=== PATIENT | male | born 1955 | race Caucasian/White ===

== ENCOUNTER 2016-10-17 08:13 | Emergency (ER) | payer OTHER ==
--- NOTE | 2016-10-17 08:52 | EDPHY ---
H & P Stated Complaint: LOWER ABD PAIN, URINARY HESISTANCY/STRAIN/FREQ Time Seen by Provider: 10/17/16 08:46 HPI/ROS: CHIEF COMPLAINT: Urinary retention HISTORY OF PRESENT ILLNESS: Patient is a 61-year-old man who comes to the emergency department complaining of urinary retention. It is gradually worsened over the last 2 weeks. He has a referral to the urologist at the [place] 9 days from now. However he is having pain in his lower abdomen and is only is able to urinate small amounts. No fevers. No chest pain. No flank pain. REVIEW OF SYSTEMS: Constitutional: denies: chills, fever, recent illness, recent injury EENTM: denies: blurred vision, double vision, nose congestion Respiratory: denies: cough, shortness of breath Cardiac: denies: chest pain, irregular heart rate, lightheadedness, palpitations Gastrointestinal/Abdominal: denies: abdominal pain, diarrhea, nausea, vomiting, blood streaked stools Genitourinary: See HPI Musculoskeletal: denies: joint pain, muscle pain Skin: denies: lesions, rash, jaundice, bruising Neurological: denies: headache, numbness, paresthesia, tingling, dizziness, weakness Hematologic/Lymphatic: denies: blood clots, easy bleeding, easy bruising Immunologic/allergic: denies: HIV/AIDS, transplant EXAM: GENERAL: Well-appearing, well-nourished and in no acute distress. HEAD: Atraumatic, normocephalic. EYES: Pupils equal round and reactive to light, extraocular movements intact, sclera anicteric, conjunctiva are normal. ENT: TMs normal, nares patent, oropharynx clear without exudates. Moist mucous membranes. NECK: Normal range of motion, supple without lymphadenopathy or JVD. LUNGS: Breath sounds clear to auscultation bilaterally and equal. No wheezes rales or rhonchi. HEART: Regular rate and rhythm without murmurs, rubs or gallops. ABDOMEN: distended bladder, mild tenderness, Soft, nontender, normoactive bowel sounds. No guarding, no rebound. BACK: No CVA tenderness, no spinal tenderness, step-offs or deformities EXTREMITIES: Normal range of motion, no pitting or edema. No clubbing or cyanosis. NEUROLOGICAL: Cranial nerves II through XII grossly intact. Normal speech, normal gait. 5/5 strength, normal movement in all extremities, normal sensation PSYCH: Normal mood, normal affect. SKIN: Warm, dry, normal turgor, no visible rashes or lesions. Source: Patient Exam Limitations: No limitations - Personal History Current Tetanus/Diphtheria Vaccine: Yes Current Tetanus Diphtheria and Acellular Pertussis (TDAP): Yes Tetanus Vaccine Date: 2009 - Medical/Surgical History Hx Asthma: No Hx Chronic Respiratory Disease: No Hx Diabetes: No Hx Cardiac Disease: No Hx Renal Disease: No Hx Cirrhosis: No Hx Alcoholism: No Hx HIV/AIDS: No Hx Splenectomy or Spleen Trauma: No Other PMH: PSH- ORTHO - Family History Significant Family History: No pertinent family hx - Social History Smoking Status: Never smoked Alcohol Use: Sober Drug Use: None Constitutional: Initial Vital Signs Temperature (C) 36.4 C 10/17/16 08:17 Heart Rate 75 10/17/16 08:17 Respiratory Rate 14 10/17/16 08:17 Blood Pressure 154/81 H 10/17/16 08:17 O2 Sat (%) 98 10/17/16 08:17 O2 Delivery Mode Room Air Allergies/Adverse Reactions: Penicillins Allergy (Verified 03/08/13 02:36) Sulfa (Sulfonamide Antibiotics) Allergy (Verified 03/08/13 02:36) Home Medications: Medication Instructions Recorded Ascorbic Acid [Vitamin C 500 mg 500 mg PO DAILY 03/08/13 (OTC)] Cholecalciferol Vit D3 [Vitamin D3 400 units PO DAILY 03/08/13 400 units (OTC)] Folic Acid 0.2 mg PO DAILY 03/08/13 Herbals/Supplements -Info Only 1 each PO AD 03/08/13 Lisinopril [Zestril 10 mg (RX)] 10 mg PO DAILY 03/08/13 [place]-3 Fatty Acids [Fish Oil 1000 1,000 mg PO DAILY 03/08/13 mg (OTC)] Pharmacy Complete 03/08/13 03/08/13 Vitamin E [Vitamin E 400 units 400 unit PO DAILY 03/08/13 (OTC)] Medical Decision Making ED Course/Re-evaluation: Patient's Betancourt is in place. He has been instructed on leg bag. Urinalysis is unremarkable. We will refer him to Urology. Differential Diagnosis: Partial list of the Differential diagnosis considered include but were not limited to; urinary tract infection, prostatic hypertrophy, urinary obstruction and although unlikely based on the history and physical exam, I also considered rupture, appendicitis, diverticulitis. I discussed these differential diagnoses and the plan with the patient as well as the usual and expected course. The patient understands that the diagnosis is provisional and that in medicine we are not always correct and that further workup is often warranted. Usual and customary warnings were given. All of the patient's questions were answered. The patient was instructed to return to the emergency department should the symptoms at all worsen or return, otherwise to followup with the physician as we discussed. - Data Points Laboratory Results: 10/17/16 Unknown Urine Color PALE YELLOW Urine Appearance CLEAR Urine pH 5.0 (5.0-7.5) Ur Specific [place] 1.010 (1.002-1.030) Urine Protein NEGATIVE (NEGATIVE) Urine Ketones NEGATIVE (NEGATIVE) Urine Blood NEGATIVE (NEGATIVE) Urine Nitrate NEGATIVE (NEGATIVE) Urine Bilirubin NEGATIVE (NEGATIVE) Urine Urobilinogen NEGATIVE EU EU (0.2-1.0) Ur Leukocyte Esterase NEGATIVE (NEGATIVE) Ur Culture Indicated? NOT INDICATED (NI) Urine Glucose NEGATIVE (NEGATIVE) Departure - Departure Disposition: Home, Routine, Self-Care Clinical Impression: Urinary obstruction Condition: Fair Instructions: Betancourt Catheter Placement and Care (ED) Referrals: COLE MCFADDEN [Primary Care Provider] - As per Instructions Christopher Saez MD [Medical Doctor] - As per Instructions
[2016-10-17 09:17] LABS: COLOR PALE YELLOW; LEUKOCYTE ESTERASE,URINE NEGATIVE (NEGATIVE); NITRITE,URINE NEGATIVE (NEGATIVE)
[2016-10-17 10:41] VITALS: BP 139/76; PULSE 82; RESP 17; TEMP 98.1; O2SAT 94
== END 2016-10-17 10:42 | disposition home or self-care (01) ==
PROC: 0T9B70Z Drainage of Bladder with Drainage Device, Via Natural or Artificial Opening (ICD-10-PCS; principal; 2016-10-17)
DX: N13.9 Obstructive and reflux uropathy, unspecified (principal)

== ENCOUNTER 2016-10-18 12:28 | Emergency (ER) | payer OTHER ==
[2016-10-18 12:34] VITALS: BP 146/82; PULSE 76; RESP 16; TEMP 97.7; O2SAT 98
[2016-10-18] MEDS ORDERED: LIDOCAINE 2% JELLY 20 ML (UROJECT) ONE (12:53)
[2016-10-18] MEDS ORDERED: PHENAZOPYRIDINE HCL 200 MG TAB PO ONE (12:59)
[2016-10-18 13:09] LABS: COLOR YELLOW; LEUKOCYTE ESTERASE,URINE NEGATIVE (NEGATIVE); NITRITE,URINE NEGATIVE (NEGATIVE)
[2016-10-18] MEDS ORDERED: TAMSULOSIN HCL 0.4 MG CAP PO ONE ×2 (13:09→13:22)
--- NOTE | 2016-10-18 13:19 | EDPHY ---
H & P Stated Complaint: urinary catheter related pain, hematuria Time Seen by Provider: 10/18/16 12:40 HPI/ROS: CHIEF COMPLAINT: Penile pain following Betancourt catheter placement HISTORY OF PRESENT ILLNESS: The patient presents to the ED with penile pain following placement of a Betancourt catheter in the emergency department yesterday for urinary retention. The patient was diagnosed with a urinary tract infection and completed 10 days of Levaquin. His last dose of the medication was yesterday. He was seen in the ED yesterday and had approximately 2 L strain from his bladder. He had done well until this morning. His Betancourt catheter continues to drain however has developed some mild hematuria. Patient complains of fairly significant discomfort throughout his urethra. He denies any flank pain, fever or vomiting. REVIEW OF SYSTEMS: A comprehensive 10 point review of systems is otherwise negative aside from elements mentioned in the history of present illness. Source: Patient Exam Limitations: No limitations - Personal History Current Tetanus/Diphtheria Vaccine: Unsure Current Tetanus Diphtheria and Acellular Pertussis (TDAP): Unsure Tetanus Vaccine Date: 2009 - Medical/Surgical History Hx Asthma: No Hx Chronic Respiratory Disease: No Hx Diabetes: No Hx Cardiac Disease: No Hx Renal Disease: No Hx Cirrhosis: No Hx Alcoholism: No Hx HIV/AIDS: No Hx Splenectomy or Spleen Trauma: No Other PMH: PSH- ORTHO. BPH - Social History Smoking Status: Never smoked - Physical Exam Exam: General Appearance: Alert, no distress Eyes: Pupils equal and round no pallor or injection ENT, Mouth: Mucous membranes moist Respiratory: There are no retractions, lungs are clear to auscultation Cardiovascular: Regular rate and rhythm Gastrointestinal: Abdomen is soft and nontender, no masses, bowel sounds normal Genitourinary: Betancourt catheter in place. Neurological: A&O, normal motor function, normal sensory exam, normal cranial nerves Skin: Warm and dry, no rashes Musculoskeletal: Neck is supple nontender Extremities: symmetrical, full range of motion Constitutional: Initial Vital Signs Temperature (C) 36.5 C 10/18/16 12:32 Heart Rate 76 10/18/16 12:32 Respiratory Rate 16 10/18/16 12:32 Blood Pressure 146/82 H 10/18/16 12:32 O2 Sat (%) 98 10/18/16 12:32 O2 Delivery Mode Room Air Allergies/Adverse Reactions: Penicillins Allergy (Verified 03/08/13 02:36) Sulfa (Sulfonamide Antibiotics) Allergy (Verified 03/08/13 02:36) Home Medications: Medication Instructions Recorded Ascorbic Acid [Vitamin C 500 mg 500 mg PO DAILY 03/08/13 (OTC)] Cholecalciferol Vit D3 [Vitamin D3 400 units PO DAILY 03/08/13 400 units (OTC)] Folic Acid 0.2 mg PO DAILY 03/08/13 Herbals/Supplements -Info Only 1 each PO AD 03/08/13 Lisinopril [Zestril 10 mg (RX)] 10 mg PO DAILY 03/08/13 [place]-3 Fatty Acids [Fish Oil 1000 1,000 mg PO DAILY 03/08/13 mg (OTC)] Pharmacy Complete 03/08/13 03/08/13 Vitamin E [Vitamin E 400 units 400 unit PO DAILY 03/08/13 (OTC)] Phenazopyridine HCl [Pyridium 200 mg PO TID PRN #10 tab 10/18/16 200mg (RX)] Tamsulosin HCl [Flomax] 0.4 mg PO DAILY #30 cap 10/18/16 levOFLOXACIN [Levaquin] 500 mg PO DAILY #10 tab 10/18/16 Medical Decision Making ED Course/Re-evaluation: I did inject viscous lidocaine into the urethra. The patient's Betancourt catheter securing patch has been repositioned as a did appear to be resulting in some lateral traction in its current location. Additionally, the patient will be started on Pyridium and Flomax. The patient does have evidence of recurrent pyuria and bacteriuria. A urine culture is pending. He will be restarted on Levaquin. The patient does have a follow-up appointment with Urology for further evaluation of his BPH. Differential Diagnosis: Differential diagnosis considered includes urinary retention, Betancourt catheter malfunction, urinary tract infection, cystitis, urethritis - Data Points Laboratory Results: 10/18/16 12:43 Urine Color YELLOW Urine Appearance MODERATELY TURBID Urine pH 5.0 (5.0-7.5) Ur Specific [place] 1.024 (1.002-1.030) Urine Protein 2+ H (NEGATIVE) Urine Ketones NEGATIVE (NEGATIVE) Urine Blood 3+ H (NEGATIVE) Urine Nitrate NEGATIVE (NEGATIVE) Urine Bilirubin NEGATIVE (NEGATIVE) Urine Urobilinogen NEGATIVE EU EU (0.2-1.0) Ur Leukocyte Esterase NEGATIVE (NEGATIVE) Urine RBC 50-182 /hpf H /hpf (0-3) Urine WBC 5-10 /hpf H /hpf (0-3) Ur Epithelial Cells TRACE /lpf /lpf (NONE-1+) Urine Bacteria 1+ /hpf H /hpf (NONE SEEN) Urine Mucus 1+ /lpf /lpf (NONE-1+) Ur Culture Indicated? INDICATED H (NI) Urine Glucose NEGATIVE (NEGATIVE) Medications Given: Discontinued Medications Phenazopyridine HCl (Pyridium) 200 mg PO EDNOW ONE Stop: 10/18/16 13:00 Last Admin: 10/18/16 13:21 Dose: 200 mg Tamsulosin HCl (Flomax) 0.4 mg PO EDNOW ONE Stop: 10/18/16 13:23 Last Admin: 10/18/16 13:28 Dose: 0.4 mg Departure - Departure Disposition: Home, Routine, Self-Care Clinical Impression: Urinary retention, Betancourt catheter in place, Penile pain Condition: Good Instructions: Betancourt Catheter Placement and Care (ED) Additional Instructions: 1. Please take Flomax and Pyridium as directed. 2. Please return to the ED for should your Betancourt catheter stopped draining, develop fever, flank pain or vomiting. 3. Please follow up as scheduled with your primary care provider and urologist. 4. Please resume Levaquin, we do have a urine culture pending at this point time. Please contact the ED in 2 days to check the results of that. Referrals: COLE MCFADDEN [Primary Care Provider] - As per Instructions Prescriptions: levOFLOXACIN [Levaquin] 500 mg PO DAILY #10 tab Phenazopyridine HCl [Pyridium 200mg (RX)] 200 mg PO TID PRN #10 tab PRN Reason: for painful urination Tamsulosin HCl [Flomax] 0.4 mg PO DAILY #30 cap
[2016-10-18 13:21] LABS: BACTERIA 1+ /hpf (NONE SEEN); MUCUS 1+ /lpf (NONE-1+); RBC,URINE 50-182 /hpf (0-3)
== END 2016-10-18 14:13 | disposition home or self-care (01) ==
DX: N48.89 Other specified disorders of penis (principal); R33.9 Retention of urine, unspecified; Z46.6 Encounter for fitting and adjustment of urinary device

== ENCOUNTER 2017-05-23 20:29 | Emergency (ER) | payer OTHER ==
--- NOTE | 2017-05-23 20:53 | EDPHY ---
H & P Time Seen by Provider: 05/23/17 20:41 HPI/ROS: CHIEF COMPLAINT: Right flank pain, hematuria, urinary retention HISTORY OF PRESENT ILLNESS: The patient is a 62-year-old male with a history of BPH and urinary retention who presents to the emergency department with multiple complaints. The patient states his symptoms started at the end of last week when he had a self catheterization on Wednesday. He states that he has not self catheterization this 6 months preceding. He obtain and 50 mL after catheterization. He slowly has developed pressure that is similar to his urinary retention. He last catheterization this morning at 5:00 a.m.. This morning during his catheterization he noticed that he had eric hematuria. He also slowly developed right flank pain. He has had no nausea or vomiting. No fevers or chills. REVIEW OF SYSTEMS: My complete review of systems is negative except as mentioned in the HPI. Past Medical/Surgical History: Includes the benign prosthetic hypertrophy, hypertension, small-bowel obstruction Past surgical history: Includes lysis of adhesion, bilateral hernia repair, vasectomy Social history: The patient is . He does not smoke. Smoking Status: Never smoked Physical Exam: 37.2, 110/67, 84, 18, 97% on room air GENERAL: Well-appearing, in no acute distress, alert. HEENT: Eyes normal to inspection, normal pharynx, no signs of dehydration. NECK: No thyromegaly, no lymphadenopathy, supple. RESPIRATORY: Clear to auscultation bilaterally, no rales, rhonchi or wheezing. CVS: Regular rate and rhythm, no rubs, murmurs, or gallops. ABDOMEN: Soft, mild suprapubic tenderness to palpation with no rebound or guarding, nondistended, no organomegaly. BACK: Normal to inspection, no CVA tenderness. SKIN: Normal color, no rash, warm, dry. No pallor. EXTREMITIES: No pedal edema, no joint swelling. NEURO/PSYCH: Alert and oriented, normal mood and affect Constitutional: Initial Vital Signs Temperature (C) 37.2 C 05/23/17 20:33 Heart Rate 84 05/23/17 20:33 Respiratory Rate 18 05/23/17 20:33 Blood Pressure 110/67 05/23/17 20:33 O2 Sat (%) 97 05/23/17 20:33 O2 Delivery Mode Room Air Allergies/Adverse Reactions: Penicillins Allergy (Verified 03/08/13 02:36) Sulfa (Sulfonamide Antibiotics) Allergy (Verified 03/08/13 02:36) Home Medications: Medication Instructions Recorded Ascorbic Acid [Vitamin C 500 mg 500 mg PO DAILY 03/08/13 (OTC)] Cholecalciferol Vit D3 [Vitamin D3 400 units PO DAILY 03/08/13 400 units (OTC)] Herbals/Supplements -Info Only 1 each PO AD 03/08/13 Lisinopril [Zestril 10 mg (RX)] 10 mg PO DAILY 03/08/13 [place]-3 Fatty Acids [Fish Oil 1000 1,000 mg PO DAILY 03/08/13 mg (OTC)] Vitamin E [Vitamin E 400 units 400 unit PO DAILY 03/08/13 (OTC)] Tamsulosin HCl [Flomax] 0.4 mg PO DAILY #30 cap 10/18/16 Cephalexin [Keflex (*)] 500 mg PO QID 7 Days cap 05/23/17 Finasteride 05/23/17 Medical Decision Making ED Course/Re-evaluation: In the emergency department I discussed possible etiologies with the patient. An IV was placed. Laboratory studies were obtained. A CT of the abdomen and pelvis without contrast was ordered. I reviewed the patient's laboratory studies[place] [address]. His creatinine was normal. He has mildly elevated BUN. Abdominal pelvis CT: Please refer the dictated report by Dr. Jonny Brown. Patient has no ureteral or kidney stones. He has a crossed fused renal ectopia. There is diffuse bladder wall thickening. This was present previously. There is a cyst on the right posterior aspect of his bladder. This was also present previously but it is bigger today. Post CT imaging the Betancourt catheter was placed and irrigated. I discussed the results with the patient. On recheck the patient was doing well. He had no abdominal pain. He had no tenderness palpation. The patient was given Rocephin 1 g IV. I answered all the patient's questions. The patient feels comfortable continuing to self cath. The Betancourt catheter will be removed. Patient will take his entire course of antibiotics. He will follow up with his urologist Dr. Wei Sarmiento. Patient was instructed to call his urologist tomorrow. He will return with worsening symptoms. He is given warnings prior to leaving. Differential Diagnosis: My differential includes but is not limited to urinary retention, urinary tract infection, hematuria, cystitis, mass, malignancy, kidney stone, cyst - Data Points Laboratory Results: Laboratory Results 05/23/17 20:50 05/23/17 20:50 05/23/17 05/23/17 05/23/17 20:50 20:50 20:50 WBC 14.07 10^3/uL H 10^3/uL (3.80-9.50) RBC 4.90 10^6/uL 10^6/uL (4.40-6.38) Hgb 14.5 g/dL g/dL (13.7-17.5) Hct 41.7 % % (40.0-51.0) MCV 85.1 fL fL (81.5-99.8) MCH 29.6 pg pg (27.9-34.1) MCHC 34.8 g/dL g/dL (32.4-36.7) RDW 13.9 % % (11.5-15.2) Plt Count 169 10^3/uL 10^3/uL (150-400) MPV 11.3 fL fL (8.7-11.7) Neut % (Auto) 78.4 % H % (39.3-74.2) Lymph % (Auto) 11.2 % L % (15.0-45.0) Lamb % (Auto) 9.0 % % (4.5-13.0) Eos % (Auto) 0.4 % L % (0.6-7.6) Baso % (Auto) 0.4 % % (0.3-1.7) Nucleat RBC Rel Count 0.0 % % (0.0-0.2) Absolute Neuts (auto) 11.04 10^3/uL H 10^3/uL (1.70-6.50) Absolute Lymphs (auto) 1.57 10^3/uL 10^3/uL (1.00-3.00) Absolute Monos (auto) 1.26 10^3/uL H 10^3/uL (0.30-0.80) Absolute Eos (auto) 0.06 10^3/uL 10^3/uL (0.03-0.40) Absolute Basos (auto) 0.06 10^3/uL 10^3/uL (0.02-0.10) Absolute Nucleated RBC 0.00 10^3/uL 10^3/uL (0-0.01) Immature Gran % 0.6 % % (0.0-1.1) Immature Gran # 0.08 10^3/uL 10^3/uL (0.00-0.10) PT 14.1 SEC SEC (12.0-15.0) INR 1.10 (0.83-1.16) APTT 27.1 SEC SEC (23.0-38.0) Sodium 139 mEq/L mEq/L (134-144) Potassium 4.4 mEq/L mEq/L (3.5-5.2) Chloride 102 mEq/L mEq/L (97-110) Carbon Dioxide 22 mEq/l mEq/l (22-31) Anion Gap 15 mEq/L mEq/L (8-16) BUN 28 mg/dL H mg/dL (7-23) Creatinine 1.3 mg/dL mg/dL (0.7-1.3) Estimated GFR 56 Glucose 106 mg/dL H mg/dL (70-100) Calcium 9.0 mg/dL mg/dL (8.5-10.4) Total Bilirubin 0.8 mg/dL mg/dL (0.1-1.4) Conjugated Bilirubin 0.2 mg/dL mg/dL (0.0-0.5) Unconjugated Bilirubin 0.6 mg/dL mg/dL (0.0-1.1) AST 25 IU/L IU/L (17-59) ALT 58 IU/L IU/L (21-72) Alkaline Phosphatase 39 IU/L IU/L (38-126) Total Protein 6.7 g/dL g/dL (6.3-8.2) Albumin 4.3 g/dL g/dL (3.5-5.0) Lipase 71 IU/L IU/L (23-300) Urine Color Urine Appearance Urine pH Ur Specific [place] Urine Protein Urine Ketones Urine Blood Urine Nitrate Urine Bilirubin Urine Urobilinogen Ur Leukocyte Esterase Urine RBC Urine WBC Ur Epithelial Cells Urine Glucose 05/23/17 20:45 WBC RBC Hgb Hct MCV MCH MCHC RDW Plt Count MPV Neut % (Auto) Lymph % (Auto) Lamb % (Auto) Eos % (Auto) Baso % (Auto) Nucleat RBC Rel Count Absolute Neuts (auto) Absolute Lymphs (auto) Absolute Monos (auto) Absolute Eos (auto) Absolute Basos (auto) Absolute Nucleated RBC Immature Gran % Immature Gran # PT INR APTT Sodium Potassium Chloride Carbon Dioxide Anion Gap BUN Creatinine Estimated GFR Glucose Calcium Total Bilirubin Conjugated Bilirubin Unconjugated Bilirubin AST ALT Alkaline Phosphatase Total Protein Albumin Lipase Urine Color YELLOW Urine Appearance TURBID Urine pH 6.0 (5.0-7.5) Ur Specific [place] 1.020 (1.002-1.030) Urine Protein 2+ H (NEGATIVE) Urine Ketones NEGATIVE (NEGATIVE) Urine Blood 3+ H (NEGATIVE) Urine Nitrate TNP Urine Bilirubin NEGATIVE (NEGATIVE) Urine Urobilinogen NEGATIVE EU EU (0.2-1.0) Ur Leukocyte Esterase 2+ H (NEGATIVE) Urine RBC 50-182 /hpf H /hpf (0-3) Urine WBC 50-182 /hpf H /hpf (0-3) Ur Epithelial Cells NONE SEEN /lpf /lpf (NONE-1+) Urine Glucose NEGATIVE (NEGATIVE) Departure - Departure Disposition: Home, Routine, Self-Care Clinical Impression: Urinary retention Hematuria Qualifiers: Hematuria type: gross Qualified Code(s): R31.0 - Gross hematuria Urinary tract infection Qualifiers: Urinary tract infection type: acute cystitis Hematuria presence: with hematuria Qualified Code(s): N30.01 - Acute cystitis with hematuria Condition: Good Instructions: Urinary Retention in Men (ED), Urinary Tract Infection in Men (ED ) Additional Instructions: You the had been given a CD of your CT results. You need close follow-up with your urologist. Take your entire prescription of antibiotics. Return with increasing pain, fever, vomiting or any other concerns. Continue to self cath as needed. Referrals: RENEA JASSO [Primary Care Provider] - As per Instructions Torsten Coyne [Other] - As per Instructions Prescriptions: Cephalexin [Keflex (*)] 500 mg PO QID 7 Days cap
[2017-05-23 21:04] LABS: COLOR YELLOW; LEUKOCYTE ESTERASE,URINE 2+ (NEGATIVE)
[2017-05-23 21:06] LABS: % IMMATURE GRANULYOCYTES 0.6 % (0.0-1.1); ABSOLUTE IMMATURE GRANULOCYTES 0.08 10^3/uL (0.00-0.10); ADD DIFF? NO; ADD MORPH? NO; ADD SCAN? NO; ATYPICAL LYMPHOCYTE FLAG 0 (0-99); FRAGMENT RBC FLAG 0 (0-99); HEMATOCRIT 41.7 % (40.0-51.0); HEMOGLOBIN 14.5 g/dL (13.7-17.5); LEFT SHIFT FLG 0 (0-99); LIPEMIA HEMOLYSIS FLAG 90 (0-99); MEAN CELL HEMOGLOBIN 29.6 pg (27.9-34.1); MEAN CELL HEMOGLOBIN CONCENTR. 34.8 g/dL (32.4-36.7); MEAN CELL VOLUME 85.1 fL (81.5-99.8); MEAN PLATELET VOLUME 11.3 fL (8.7-11.7); PLATELET CLUMPS FLAG 0 (0-99); PLATELET COUNT 169 10^3/uL (150-400); RED CELL DISTRIBUTION WIDTH 13.9 % (11.5-15.2)
[2017-05-23 21:10] LABS: RBC,URINE 50-182 /hpf (0-3); WBC,URINE 50-182 /hpf (0-3)
[2017-05-23 21:17] LABS: INR 1.1 (0.83-1.16); PROTIME(PATIENT) 14.1 SEC (12.0-15.0)
[2017-05-23 21:18] LABS: APTT 27.1 SEC (23.0-38.0)
[2017-05-23 21:19] LABS: ALANINE AMINOTRANSFERASE 58 IU/L (21-72); ALBUMIN 4.3 g/dL (3.5-5.0); ALKALINE PHOSPHATASE 39 IU/L (38-126); ANION GAP 15 mEq/L (8-16); ASPARTATE AMINOTRANSFERASE 25 IU/L (17-59); BILIRUBIN,TOTAL 0.8 mg/dL (0.1-1.4); BILIRUBIN-CONJUGATED 0.2 mg/dL (0.0-0.5); BILIRUBIN-UNCONJUGATED 0.6 mg/dL (0.0-1.1); CARBON DIOXIDE 22 mEq/l (22-31); CHLORIDE 102 mEq/L (97-110); CREATININE 1.3 mg/dL (0.7-1.3); GLOMERULAR FILTRATION RATE 56; GLUCOSE 106 mg/dL (70-100); POTASSIUM 4.4 mEq/L (3.5-5.2); SODIUM 139 mEq/L (134-144); TOTAL PROTEIN 6.7 g/dL (6.3-8.2)
[2017-05-23 22:36] VITALS: BP 111/71; PULSE 82; RESP 20; TEMP 98.6; O2SAT 94
== END 2017-05-23 22:36 | disposition home or self-care (01) ==
PROC: 0T9B70Z Drainage of Bladder with Drainage Device, Via Natural or Artificial Opening (ICD-10-PCS; principal; 2017-05-23)
DX: R33.9 Retention of urine, unspecified (principal); N30.01 Acute cystitis with hematuria; B96.89 Other specified bacterial agents as the cause of diseases classified elsewhere; I10 Essential (primary) hypertension
CPT/HCPCS: 96365; J0696

== ENCOUNTER 2017-06-02 07:06 | Emergency (ER) | payer OTHER ==
[2017-06-02 07:12] VITALS: BP 118/67; PULSE 68; RESP 17; TEMP 98.2; O2SAT 97
--- NOTE | 2017-06-02 07:24 | EDPHY ---
H & P Stated Complaint: hematuria stopped keflex wednesday for same Time Seen by Provider: 06/02/17 07:13 HPI/ROS: CHIEF COMPLAINT: Recurrent hematuria HISTORY OF PRESENT ILLNESS: Patient presents to the ED with recurrent hematuria. He was seen in the emergency department on May 23. At that point time he was diagnosed with a likely urinary tract infection. He was given IV ceftriaxone and prescribed Keflex. The patient stop taking his Keflex on Wednesday. The patient noted recurrent hematuria today. During the patient's workup in the emergency department a week ago he had a CT scan of the abdomen pelvis which demonstrated no evidence of nephro or ureterolithiasis. There was bladder wall thickening. Patient did undergo a urine culture which demonstrated sensitive Staph epidermidis as a pathogen. The patient does have a history of BPH. The patient has had to perform self catheterization the past but reports fairly normal urinary flow this week. The patient is scheduled to see his urologist on the 15 of June. The patient denies any fever or flank pain or vomiting today. REVIEW OF SYSTEMS: A comprehensive 10 point review of systems is otherwise negative aside from elements mentioned in the history of present illness. Source: Patient Exam Limitations: No limitations - Personal History Current Tetanus/Diphtheria Vaccine: Yes Tetanus Vaccine Date: 2009 - Medical/Surgical History Hx Asthma: No Hx Chronic Respiratory Disease: No Hx Diabetes: No Hx Cardiac Disease: No Hx Renal Disease: No Hx Cirrhosis: No Hx Alcoholism: No Hx HIV/AIDS: No Hx Splenectomy or Spleen Trauma: No Other PMH: PSH- ORTHO. BPH - Social History Smoking Status: Never smoked - Physical Exam Exam: General Appearance: Alert, no distress Eyes: Pupils equal and round no pallor or injection ENT, Mouth: Mucous membranes moist Respiratory: There are no retractions, lungs are clear to auscultation Cardiovascular: Regular rate and rhythm Gastrointestinal: Abdomen is soft and nontender, no masses, bowel sounds normal Neurological: A&O, normal motor function, normal sensory exam, normal cranial nerves Skin: Warm and dry, no rashes Musculoskeletal: Neck is supple nontender Extremities: symmetrical, full range of motion Constitutional: Initial Vital Signs Temperature (C) 36.8 C 06/02/17 07:10 Heart Rate 68 06/02/17 07:10 Respiratory Rate 17 06/02/17 07:10 Blood Pressure 118/67 06/02/17 07:10 O2 Sat (%) 97 06/02/17 07:10 O2 Delivery Mode Room Air Allergies/Adverse Reactions: Penicillins Allergy (Verified 06/02/17 07:09) Sulfa (Sulfonamide Antibiotics) Allergy (Verified 06/02/17 07:09) Home Medications: Medication Instructions Recorded Ascorbic Acid [Vitamin C 500 mg 500 mg PO DAILY 03/08/13 (OTC)] Cholecalciferol Vit D3 [Vitamin D3 400 units PO DAILY 03/08/13 400 units (OTC)] Herbals/Supplements -Info Only 1 each PO AD 03/08/13 Lisinopril [Zestril 10 mg (RX)] 10 mg PO DAILY 03/08/13 [place]-3 Fatty Acids [Fish Oil 1000 1,000 mg PO DAILY 03/08/13 mg (OTC)] Vitamin E [Vitamin E 400 units 400 unit PO DAILY 03/08/13 (OTC)] Tamsulosin HCl [Flomax] 0.4 mg PO DAILY #30 cap 10/18/16 Finasteride 05/23/17 Cephalexin [Keflex] 500 mg PO TID #63 cap 06/02/17 Medical Decision Making ED Course/Re-evaluation: I reviewed the results of the patient's prior ED workup, CT scan and urine culture. The patient is well-appearing with no acute complaints today aside from hematuria. The patient will be restarted on Keflex. He will be placed on a prolonged course as he may have a mild element of prostatitis. The patient is nontoxic and well-appearing. The patient is scheduled to see his urologist in several weeks. The patient is advised to return to the ED for markedly worsening symptoms or other concerns. The patient had CT imaging week ago which was unremarkable. He has follow up with his urologist for further evaluation. The patient has no evidence of acute urinary retention or pyelonephritis clinically. Differential Diagnosis: Differential diagnosis considered includes urinary tract infection, pyelonephritis, ureterolithiasis, nephrolithiasis - Data Points Laboratory Results: 06/02/17 07:20 Urine Color RED Urine Appearance TURBID Urine pH 6.0 (5.0-7.5) Ur Specific [place] 1.017 (1.002-1.030) Urine Protein 2+ H (NEGATIVE) Urine Ketones NEGATIVE (NEGATIVE) Urine Blood 3+ H (NEGATIVE) Urine Nitrate NEGATIVE (NEGATIVE) Urine Bilirubin NEGATIVE (NEGATIVE) Urine Urobilinogen NEGATIVE EU EU (0.2-1.0) Ur Leukocyte Esterase 3+ H (NEGATIVE) Urine RBC Pending Urine WBC Pending Ur Epithelial Cells Pending Urine Glucose NEGATIVE (NEGATIVE) Departure - Departure Disposition: Home, Routine, Self-Care Clinical Impression: Urinary tract infection Condition: Good Instructions: Urinary Tract Infection in Men (ED) Additional Instructions: 1. Please return to the ED for fever, flank pain, vomiting or worsening symptoms. 2. Please take antibiotics as prescribed. 3. Please follow up with your urologist as scheduled. Referrals: RENEA JASSO [Primary Care Provider] - As per Instructions Prescriptions: Cephalexin [Keflex] 500 mg PO TID #63 cap
[2017-06-02] MEDS ORDERED: CEPHALEXIN 500 MG CAP PO ONE ×2 (07:32→07:45)
== END 2017-06-02 07:45 | disposition home or self-care (01) ==
DX: N39.0 Urinary tract infection, site not specified (principal); B96.89 Other specified bacterial agents as the cause of diseases classified elsewhere